=== PATIENT | female | born 1940 | race African-American/Black ===

== ENCOUNTER 2018-04-22 11:42 | Emergency (ER) | payer OTHER ==
[~2018-04-22] VITALS: Ht 165.1 cm; Wt 66.3 kg
[2018-04-22] MEDS ORDERED: ALTEPLASE 50MG/VIAL IV NR (12:36)
[2018-04-22] MEDS ORDERED: HYDRALAZINE 20MG/ML VIAL IV ONE (12:45)
[2018-04-22] MEDS ORDERED: ALTEPLASE IV NR (13:00)
[2018-04-22] MEDS ORDERED: SODIUM CHLORIDE 0.9% IV NR (13:00)
[2018-04-22 13:28] VITALS: BP 167/81
[2018-04-22 13:59] LABS: BASOPHILS % 0.9 % (0.0-2.0); HEMATOCRIT. 39.8 % (36.0-48.0); HEMOGLOBIN. 13.2 g/dL (12.0-16.0); MEAN CORPUSCULAR HEMOGLOBIN 29.2 pg (28.0-32.0); MEAN CORPUSCULAR VOLUME 88.1 fL (81.0-99.0); MEAN PLATELET VOLUME 9.2 fl (7.4-10.4); MONOCYTES % 4.6 % (2.0-8.0); NEUTROPHILS % 84.5 % (40.0-76.0); PLATELET 217 x1000/uL (130-400); RED BLOOD CELL COUNT 4.51 mill/uL (4.2-5.4); RED CELL DISTRIBUTION WIDTH 14.3 % (11.6-14.6)
[2018-04-22 14:04] LABS: CHLORIDE 105 mEq/L (98-107)
[2018-04-22 14:08] LABS: ETHANOL BLOOD < 10 mg/dL
[2018-04-22 14:10] LABS: LDL CHOLESTEROL 121 mg/dL (5-100)
[2018-04-22 14:12] LABS: D-DIMER 3.56 mg/L FEU (<0.50); INR 1.2
== END 2018-04-22 13:45 | disposition short-term general hospital (02) ==
LOC: ER 11:42
DX: I63.9 Cerebral infarction, unspecified (principal); R47.01 Aphasia; G81.91 Hemiplegia, unspecified affecting right dominant side; E11.9 Type 2 diabetes mellitus without complications; Z91.81 History of falling
CPT/HCPCS: 36415; 37195; 70450; 71045; 80053; 81025; 82962; 83721; 83880; 84484; 85025; 85379; 85610; 93005; 96374; 99291; G0482; J0360; J2997; J7050